=== PATIENT | female | born 1980 | race African-American/Black ===

== ENCOUNTER 2016-10-28 10:40 | Emergency (ER) | payer MEDICARE, OTHER ==
[~2016-10-28] VITALS: Ht 167.6 cm; Wt 99.8 kg
[2016-10-28 12:05] VITALS: BP 239/114
--- NOTE | 2016-10-28 13:10 | PHYS DOC ---
Past Medical History Past Medical History: Diabetes-Type I, Hypertension, Renal Failure Past Surgical History: Additional Past Surgical Histo: PERITONEAL SURGERY Alcohol Use: None Drug Use: None Adult General Chief Complaint Chief Complaint: OTHER COMPLAINTS HPI HPI 36-year-old female who undergoes peritoneal dialysis was sent here by a local dialysis clinic for blood draw. The patient denies any symptoms she denies shortness of breath nausea vomiting fevers or chills. Onset today. Location generalized. Duration intermittent. No alleviating factors present. ROS is negative for chest pain shortness of breath nausea vomiting fevers chills. All other review of systems is negative unless otherwise noted in history of present illness. ED course: 36-year-old female presenting to the emergency department today desiring a blood draw. Triage vital signs afebrile with significant hypertension at 240 Nearly over 115. The remainder the vital signs were unremarkable. The patient was well-appearing nontoxic and not in any distress when I examined her. I explained to her that when evaluated in the emergency department we performed our lab here to ensure she does not have an emergent medical condition. I offered to forward a copy of those labs to her cabana attendant. It is my concern that her potassium could be abnormal which I would want to have tested. The patient was upset and only desired for the blood to be drawn and taken with her to clinic. I explained to her my concerns. The patient then eloped without discharge instructions. She demonstrated medical decision making capacity at that time and understood the risks. Patient did not have any evidence of end organ damage. Review of Systems Review of Systems SEE ABOVE. Allergies Allergies Allergies Coded Allergies Type Severity Reaction Last Updated Verified No Known Drug Allergies 10/28/16 No Physical Exam Physical Exam SEE ABOVE Constitutional: Well developed, well nourished, no acute distress, non-toxic appearance. [] HENT: Normocephalic, atraumatic, bilateral external ears normal, oropharynx moist, no oral exudates, nose normal. [] Eyes: PERRLA, EOMI, conjunctiva normal, no discharge. Neck: Normal range of motion, no tenderness, supple, no stridor. [] Cardiovascular:Heart rate regular rhythm, no murmur [] Lungs & Thorax: Bilateral breath sounds clear to auscultation Abdomen: Bowel sounds normal, soft, no tenderness, no masses, no pulsatile masses. [] Skin: Warm, dry, no erythema, no rash. [] Back: No tenderness, no CVA tenderness. [] Extremities: No tenderness, no cyanosis, no clubbing, ROM intact, no edema. Neurologic: Alert and oriented X 3, normal motor function, normal sensory function, no focal deficits noted. [] Psychologic: Affect normal, judgement normal, mood normal. [] Current Patient Data Vital Signs Vital Signs Date Time Temp Pulse Resp B/P (MAP) Pulse Ox O2 Delivery O2 Flow Rate FiO2 10/28/16 12:05 97.7 69 18 99 Room Air 97.7 EKG EKG [] Radiology/Procedures Radiology/Procedures [] Course & Med Decision Making Course & Med Decision Making Pertinent Labs and Imaging studies reviewed. (See chart for details) [] Dragon Disclaimer Dragon Disclaimer This electronic medical record was generated, in whole or in part, using a voice recognition dictation system. Departure Departure Impression: Primary Impression: Hypertension Disposition: HOME, SELF-CARE (ELOPED) Condition: STABLE Referrals: NON,STAFF (PCP) BRIGHT OLSEN MD Oct 28, 2016 13:10
== END 2016-10-28 13:23 | disposition home or self-care (01) ==
LOC: ER 10:40
DX: I12.9 Hypertensive chronic kidney disease with stage 1 through stage 4 chronic kidney disease, or unspecified chronic kidney disease (principal); N18.9 Chronic kidney disease, unspecified; E10.22 Type 1 diabetes mellitus with diabetic chronic kidney disease; Z99.2 Dependence on renal dialysis
CPT/HCPCS: 99281

== ENCOUNTER 2017-05-26 15:47 | Emergency (ER) | payer MEDICARE | END 2017-05-26 19:41 | disposition home or self-care (01) | LOC: ER 15:47 | DX: M25.552 Pain in left hip (principal); I12.9 Hypertensive chronic kidney disease with stage 1 through stage 4 chronic kidney disease, or unspecified chronic kidney disease; E10.22 Type 1 diabetes mellitus with diabetic chronic kidney disease; N18.9 Chronic kidney disease, unspecified | CPT/HCPCS: 73502; 99284 ==

== ENCOUNTER 2018-07-19 15:39 | Inpatient (IN) | payer MEDICARE ==
[~2018-07-19] VITALS: Ht 162.6 cm; Wt 103.0 kg
[~2018-07-19 15:39] MED LIST: IBUP-1060 PO; PRED50TA PO
[2018-07-19] MEDS ORDERED: ONDANSETRON PF 4 MG/2 ML VIAL. IV ONE (16:00)
[2018-07-19] MEDS ORDERED: IV NORMAL SALINE 1000ML BAG 1,000 ML IV ONE (16:15)
[2018-07-19] MEDS ORDERED: fentaNYL PF VIAL 100 MCG/2 ML VIAL IV ONE (16:15)
[2018-07-19 16:29] LABS: BASO # 0.1 x10^3/uL (0.0-0.2); BASO % 1 % (0-3); EOS # 0.1 x10^3/uL (0.0-0.7); EOS % 1 % (0-3); HEMATOCRIT 39.1 % (36.0-47.0); HEMOGLOBIN 12.1 g/dL (12.0-15.5); LYMPH # 3.5 x10^3/uL (1.0-4.8); LYMPH % 38 % (24-48); MEAN CORPUSCULAR HEMOGLOBIN 26 pg (25-35); MEAN CORPUSCULAR HGB CONC 31 g/dL (31-37); MEAN CORPUSCULAR VOLUME 85 fL (79-100); MONO # 0.8 x10^3/uL (0.0-1.1); MONO % 9 % (0-9); NEUT # 4.8 x10^3uL (1.8-7.7); NEUT % 52 % (31-73); PLATELET COUNT 277 x10^3/uL (140-400); RED BLOOD COUNT 4.63 x10^6/uL (3.50-5.40); RED CELL DISTRIBUTION WIDTH 19.8 % (11.5-14.5); WHITE BLOOD COUNT 9.2 x10^3/uL (4.0-11.0)
[2018-07-19 16:32] LABS: CALCIUM 9.3 mg/dL (8.5-10.1); CREATININE 9.3 mg/dL (0.6-1.0); GFR 5.8; POTASSIUM 3.7 mmol/L (3.5-5.1)
--- NOTE | 2018-07-19 16:34 | PHYS DOC ---
Past Medical History Past Medical History: Diabetes-Type I, Hypertension, Renal Failure Past Surgical History: Additional Past Surgical Histo: PERITONEAL SURGERY Alcohol Use: None Drug Use: None Adult General Chief Complaint Chief Complaint: CHEST PAIN HPI HPI 37 year old female presents to ER via POV for complaints of mid chest pain which radiates into her right arm and upper abdominal pain. Patient reports she had eaten lunch at [employer] around 3:15 and following the meal she had onset of symptoms. Patient on arrival has complaints of nausea and during initial exam with this patient had active vomiting. She does still have her gallbladder. Patient denies any recent flulike illness. She reports she was having no symptoms prior to lunch. Review of Systems Review of Systems Constitutional: Denies fever or chills [] Eyes: Denies change in visual acuity, redness, or eye pain [] HENT: Denies nasal congestion or sore throat [] Respiratory: Denies cough or shortness of breath [] Cardiovascular: Reports mid to rt side CP GI: Denies bloody stools or diarrhea. Reports rt upper abd pain with N/V : Denies dysuria or hematuria [] Musculoskeletal: Denies back/neck pain. Reports rt upper arm pain Integument: Denies rash or skin lesions [] Neurologic: Denies headache, focal weakness or sensory changes [] Endocrine: Denies polyuria or polydipsia [] All other systems were reviewed and found to be within normal limits, except as documented in this note. Current Medications Current Medications Current Medications Medications (Trade) Dose Ordered Sig/Anh Start Time Stop Time Status Last Admin Dose Admin Fentanyl Citrate (Fentanyl 2ml Vial) 25 mcg 1X ONCE 07/19/18 16:15 07/19/18 16:16 DC 07/19/18 16:20 25 MCG Ondansetron HCl (Zofran) 4 mg 1X ONCE 07/19/18 16:00 07/19/18 16:02 DC 07/19/18 16:05 4 MG Sodium Chloride 1,000 ml @ 1,000 mls/hr 1X ONCE 07/19/18 16:15 07/19/18 17:14 DC 07/19/18 16:15 1,000 MLS/HR Allergies Allergies Allergies Coded Allergies Type Severity Reaction Last Updated Verified No Known Drug Allergies 07/19/18 No Physical Exam Physical Exam Constitutional: Well developed, well nourished, mild distress on initial exam, non-toxic appearance. [] HENT: Normocephalic, atraumatic, oropharynx moist, no oral exudates, nose normal. [] Eyes: Pupils equal, conjunctiva normal, no discharge. [] Neck: Normal range of motion, no tenderness, supple, no stridor. [] Cardiovascular: Heart rate regular rhythm, no murmur [] Lungs & Thorax: Bilateral breath sounds clear to auscultation. Resp. equal/ nonlabored Abdomen: Bowel sounds normal, soft- no distention/rigidity. Tender on palp. RUQ , no masses, no pulsatile masses. [] Skin: Warm, dry, no erythema, no rash. [] Back: No tenderness, no CVA tenderness. [] Extremities: No tenderness, no cyanosis, no clubbing, ROM intact, no edema. [] Neurologic: Alert and oriented X 3, normal motor function, normal sensory function, no focal deficits noted. [] Psychologic: Affect normal, judgement normal, mood normal. [] Current Patient Data Vital Signs Vital Signs Date Time Temp Pulse Resp B/P (MAP) Pulse Ox O2 Delivery O2 Flow Rate FiO2 07/19/18 17:34 81 16 206/91 (129) 07/19/18 15:40 97.6 98 Room Air 97.6 Lab Values Laboratory Tests Test 07/19/18 15:55 White Blood Count 9.2 x10^3/uL (4.0-11.0) Red Blood Count 4.63 x10^6/uL (3.50-5.40) Hemoglobin 12.1 g/dL (12.0-15.5) Hematocrit 39.1 % (36.0-47.0) Mean Corpuscular Volume 85 fL (79-100) Mean Corpuscular Hemoglobin 26 pg (25-35) Mean Corpuscular Hemoglobin Concent 31 g/dL (31-37) Red Cell Distribution Width 19.8 % (11.5-14.5) H Platelet Count 277 x10^3/uL (140-400) Neutrophils (%) (Auto) 52 % (31-73) Lymphocytes (%) (Auto) 38 % (24-48) Monocytes (%) (Auto) 9 % (0-9) Eosinophils (%) (Auto) 1 % (0-3) Basophils (%) (Auto) 1 % (0-3) Neutrophils # (Auto) 4.8 x10^3uL (1.8-7.7) Lymphocytes # (Auto) 3.5 x10^3/uL (1.0-4.8) Monocytes # (Auto) 0.8 x10^3/uL (0.0-1.1) Eosinophils # (Auto) 0.1 x10^3/uL (0.0-0.7) Basophils # (Auto) 0.1 x10^3/uL (0.0-0.2) Sodium Level 137 mmol/L (136-145) Potassium Level 3.7 mmol/L (3.5-5.1) Chloride Level 96 mmol/L (98-107) L Carbon Dioxide Level 25 mmol/L (21-32) Anion Gap 16 (6-14) H Blood Urea Nitrogen 49 mg/dL (7-20) H Creatinine 9.3 mg/dL (0.6-1.0) H Estimated GFR (Cockcroft-Gault) 5.8 BUN/Creatinine Ratio 5 (6-20) L Glucose Level 332 mg/dL (70-99) H Calcium Level 9.3 mg/dL (8.5-10.1) Total Bilirubin 0.4 mg/dL (0.2-1.0) Aspartate Amino Transferase (AST) 17 U/L (15-37) Alanine Aminotransferase (ALT) 14 U/L (14-59) Alkaline Phosphatase 58 U/L (46-116) Troponin I Quantitative < 0.017 ng/mL (0.000-0.055) Total Protein 8.5 g/dL (6.4-8.2) H Albumin 3.6 g/dL (3.4-5.0) Albumin/Globulin Ratio 0.7 (1.0-1.7) L Lipase 167 U/L (73-393) Laboratory Tests 07/19/18 15:55 Laboratory Tests 07/19/18 15:55 EKG EKG EKG obtained 07/19/18 at 1547 Interpreted by ER physician Sinus rhythm Ltward axis Rate 88 No STEMI Radiology/Procedures Radiology/Procedures PROCEDURE: CHEST AP ONLY EXAM: CHEST 1 VIEW. HISTORY: Chest pain. COMPARISON: 06/02/2008. FINDINGS: A frontal view of the chest is obtained. There are no confluent infiltrates. There is no pneumothorax or pleural effusion. The heart is mildly enlarged given this projection. IMPRESSION: 1. Mild cardiomegaly. Electronically signed by: Karson Torres MD (07/19/2018 4:44 PM) [id number] DICTATED and SIGNED BY: STEFAN TORRES MD DATE: 07/19/18 1644 PROCEDURE: ABDOMEN LTD EXAM: RIGHT UPPER QUADRANT ULTRASOUND. HISTORY: Right upper quadrant pain. COMPARISON: None. FINDINGS: Sonographic evaluation of the right upper quadrant was performed. The liver appears normal in parenchymal echotexture. There are no focal lesions. The gallbladder is unremarkable without evidence of stones, wall thickening or pericholecystic fluid. There is no sonographic Bartlett sign. The common duct measures 5 mm. The visualized portions of the head of the pancreas reveal no abnormality. The right kidney measures 8.7 cm. Cortical thickness is preserved. Cortical echogenicity is mildly increased. There is no hydronephrosis. The visualized portions of the abdominal aorta and inferior vena cava are grossly patent and normal in caliber. IMPRESSION: 1. No cause for pain is identified. 2. Increased right renal cortical echogenicity is consistent with intrinsic renal disease. Electronically signed by: Karson Torres MD (07/19/2018 5:21 PM) [facility] [id number] DICTATED and SIGNED BY: STEFAN TORRES MD DATE: 07/19/18 1721 Course & Med Decision Making Course & Med Decision Making Pertinent Labs and Imaging studies reviewed. (See chart for details) 1735: Patient was evaluated in the ER for complaints of sudden onset of right- sided chest pain which radiated into her right arm. On exam patient also had right upper abdominal tenderness on palpation. Patient had EKG and labs obtained with no acute ST elevation or STEMI and initial troponin was <0.017; chest x-ray showed mild organomegaly otherwise no acute findings. Ultrasound gallbladder was obtained with no acute findings noted. Patient reports her symptoms had improved as she had active vomiting during initial exam. Following dose of Zofran patient reported her nausea had subsided. Patient reported her parents both had cardiac history with her father having an ME in his 50s. With patient's onset of chest pain happening just prior to arrival to ER discussed admission to complete serial cardiac enzymes-patient is agreeable with plan. Will admit to hospitalist services for further care and monitoring. Will give patient 324 mg of aspirin. Patient's BP at time of admission discussion was 203/ 82 with heart rate 95 respirations 18 and room air saturation at 98%. Will provide patient with dose of Clonidine 0.1mg PO. Pt does have history of hypertension and has not taken her prescribed medications today. 1750: Spoke with Dr. Galvez, hospitalist and discussed pt's case and admit plan to complete serial cardiac enzymes. She reports her dialysis schedule is Saturday however this week her schedule was changed and she had dialysis yesterday instead of today. HEART score is 2 however with pt having HTN/DM and family hx of CAD with both mother and father- admitted to further r/o ACS as her sxs started just prior to arrival to ER. Dragon Disclaimer Dragon Disclaimer This electronic medical record was generated, in whole or in part, using a voice recognition dictation system. Departure Departure Impression: Primary Impression: Chest pain Additional Impression: Shortness of breath Disposition: ADMITTED INPATIENT Admitting Physician: Gus Jim Condition: STABLE Referrals: UNKNOWN PCP NAME (PCP) Problem Qualifiers MONICA ROSENBAUM APRN Jul 19, 2018 16:34
[2018-07-19 16:38] LABS: ALBUMIN 3.6 g/dL (3.4-5.0); ALBUMIN/GLOBULIN RATIO 0.7 (1.0-1.7); TOTAL BILIRUBIN 0.4 mg/dL (0.2-1.0); TOTAL PROTEIN 8.5 g/dL (6.4-8.2)
--- NOTE | 2018-07-19 16:47 | RAD ---
EXAM: CHEST 1 VIEW. HISTORY: Chest pain. COMPARISON: 06/02/2008. FINDINGS: A frontal view of the chest is obtained. There are no confluent infiltrates. There is no pneumothorax or pleural effusion. The heart is mildly enlarged given this projection. IMPRESSION: 1. Mild cardiomegaly. Electronically signed by: Karson Torres MD (07/19/2018 4:44 PM) [facility]
--- NOTE | 2018-07-19 17:24 | RAD ---
EXAM: RIGHT UPPER QUADRANT ULTRASOUND. HISTORY: Right upper quadrant pain. COMPARISON: None. FINDINGS: Sonographic evaluation of the right upper quadrant was performed. The liver appears normal in parenchymal echotexture. There are no focal lesions. The gallbladder is unremarkable without evidence of stones, wall thickening or pericholecystic fluid. There is no sonographic Bartlett sign. The common duct measures 5 mm. The visualized portions of the head of the pancreas reveal no abnormality. The right kidney measures 8.7 cm. Cortical thickness is preserved. Cortical echogenicity is mildly increased. There is no hydronephrosis. The visualized portions of the abdominal aorta and inferior vena cava are grossly patent and normal in caliber. IMPRESSION: 1. No cause for pain is identified. 2. Increased right renal cortical echogenicity is consistent with intrinsic renal disease. Electronically signed by: Karson Torres MD (07/19/2018 5:21 PM) [facility]
[2018-07-19] MEDS ORDERED: cloNIDine HCL 0.1 MG TABLET PO ONE (17:45)
[2018-07-19] MEDS ORDERED: ASPIRIN CHEWABLE 81 MG TABLET. PO ONE (17:45)
[2018-07-19] MEDS ORDERED: AMLO10TA8 PO (18:29)
[2018-07-19] MEDS ORDERED: CITA10TA8 PO (18:34)
[2018-07-19] MEDS ORDERED: CARV12.5 PO (18:34)
[2018-07-19 18:36] VITALS: BP 204/92
[2018-07-19] MEDS: hydrALAZINE 20 MG/ML VIAL. IVP PRN (18:59)
[2018-07-19 19:00] VITALS: BP 160/79
[2018-07-19] MEDS ORDERED: LOPERAMIDE 2 MG CAPSULE PO PRN (20:00)
[2018-07-19] MEDS ORDERED: CITALOPRAM 10 MG TABLET. PO SCH (21:00)
[2018-07-19] MEDS ORDERED: DEXTROSE 50% 25 GM / 50ML DISP.SYRIN. IV PRN (21:00)
--- NOTE | 2018-07-19 21:01 | PDOC1 ---
History and Physical Date of Admission Date of Admission DATE: 07/19/18 TIME: 21:00 Identification/Chief Complaint Chief Complaint seen in er with complaints of mid chest pain which radiates into her right arm and upper abdominal pain. reports she had eaten lunch at [employer] around 3:15 and following the meal she had onset of symptoms, on arrival has complaints of nausea and during initial exam with this patient had active vomiting. sono neg for gallstones Past Medical History Past Medical History Past Medical History Past Medical History Past Medical History: Diabetes-Type I, Hypertension, Renal Failure Past Surgical History: Additional Past Surgical Histo: PERITONEAL SURGERY Alcohol Use: None Drug Use: None FAMILY HX OBESITY, DIABETES Endocrine: Diabetes Family History Family History: High Cholestrol Social History Smoke: No ALCOHOL: none Drugs: None Current Problem List Problem List Problems Medical Problems: (1) Chest pain Status: Acute (2) Shortness of breath Status: Acute Current Medications Current Medications Current Medications Ondansetron HCl (Zofran) 4 mg 1X ONCE IV Last administered on 07/19/18at 16:05 ; Start 07/19/18 at 16:00; Stop 07/19/18 at 16:02; Status DC Sodium Chloride 1,000 ml @ 1,000 mls/hr 1X ONCE IV Last administered on at 16:15; Start 07/19/18 at 16:15; Stop 07/19/18 at 17:14; Status DC Fentanyl Citrate (Fentanyl 2ml Vial) 25 mcg 1X ONCE IV Last administered on at 16:20; Start 07/19/18 at 16:15; Stop 07/19/18 at 16:16; Status DC Clonidine HCl (Catapres) 0.1 mg 1X ONCE PO Last administered on 07/19/18at 17: 45; Start 07/19/18 at 17:45; Stop 07/19/18 at 17:50; Status DC Aspirin (Children'S Aspirin) 324 mg 1X ONCE PO Last administered on 07/19/18at 17:45; Start 07/19/18 at 17:45; Stop 07/19/18 at 17:50; Status DC Hydralazine HCl (Apresoline Inj) 10 mg PRN Q4HRS PRN IVP ELEVATED BP, SEE COMMENTS Last administered on 07/19/18at 18:59; Start 07/19/18 at 18:45 Amlodipine Besylate (Norvasc) 10 mg DAILY PO ; Start 07/20/18 at 09:00 Carvedilol (Coreg) 12.5 mg BIDWMEALS PO ; Start 07/20/18 at 08:00 Citalopram Hydrobromide (CeleXA) 10 mg DAILY PO ; Start 07/20/18 at 09:00; Stop 07/20/18 at 09:00; Status DC Citalopram Hydrobromide (CeleXA) 10 mg HS PO ; Start 07/19/18 at 21:00 Loperamide HCl (Imodium) 2 mg PRN Q8HRS PRN PO DIARRHEA Last administered on at 20:10; Start 07/19/18 at 20:00 Active Scripts Active Reported Celexa (Citalopram Hydrobromide) 10 Mg Tablet 1 Tab PO DAILY Coreg (Carvedilol) 12.5 Mg Tablet 12.5 Mg PO BIDWMEALS Amlodipine Besylate 10 Mg Tablet 10 Mg PO DAILY Allergies Allergies: Coded Allergies: No Known Drug Allergies (Unverified , 07/19/18) ROS Review of System Review of Systems Review of Systems Constitutional: Denies fever or chills [] Eyes: Denies change in visual acuity, redness, or eye pain [] HENT: Denies nasal congestion or sore throat [] Respiratory: Denies cough or shortness of breath [] Cardiovascular: Reports mid to rt side CP GI: Denies bloody stools or diarrhea. Reports rt upper abd pain with N/V : Denies dysuria or hematuria [] Musculoskeletal: Denies back/neck pain. Reports rt upper arm pain Integument: Denies rash or skin lesions [] Neurologic: Denies headache, focal weakness or sensory changes [] Endocrine: Denies polyuria or polydipsia [] 14 pt systems were reviewed and found to be within normal limits, except as documented Gastrointestinal: Yes Vomiting Physical Exam Physical Exam Physical Exam Physical Exam Constitutional: Well developed, well nourished, mild distress on initial exam, non-toxic appearance. [] HENT: Normocephalic, atraumatic, oropharynx moist, no oral exudates, nose normal. [] Eyes: Pupils equal, conjunctiva normal, no discharge. [] Neck: Normal range of motion, no tenderness, supple, no stridor. [] Cardiovascular: Heart rate regular rhythm, no murmur [] Lungs & Thorax: Bilateral breath sounds clear to auscultation. Resp. equal/ nonlabored Abdomen: Bowel sounds normal, soft- no distention/rigidity. Tender on palp. RUQ , no masses, no pulsatile masses. [] Skin: Warm, dry, no erythema, no rash. [] Back: No tenderness, no CVA tenderness. [] Extremities: No tenderness, no cyanosis, no clubbing, ROM intact, no edema. [] Neurologic: Alert and oriented X 3, normal motor function, normal sensory function, no focal deficits noted. [] Psychologic: Affect normal, judgement normal, mood normal. [] General: Alert, Oriented X3, Cooperative, mild distress HEENT: Atraumatic Lungs: Clear to auscultation Breasts: Not examined Abdomen: Normal bowel sounds, Soft Rectal Exam: not examined Neuro: Normal speech, Cranial nerves 3-12 NL Psych/Mental Status: Mental status NL, Mood NL Vitals Vitals Vital Signs Date Time Temp Pulse Resp B/P (MAP) Pulse Ox O2 Delivery O2 Flow Rate FiO2 07/19/18 19:39 Room Air 07/19/18 19:00 97.0 74 18 160/79 (106) 99 97.0 Labs Labs Laboratory Tests Test 07/19/18 15:55 07/19/18 20:54 White Blood Count 9.2 x10^3/uL (4.0-11.0) Red Blood Count 4.63 x10^6/uL (3.50-5.40) Hemoglobin 12.1 g/dL (12.0-15.5) Hematocrit 39.1 % (36.0-47.0) Mean Corpuscular Volume 85 fL (79-100) Mean Corpuscular Hemoglobin 26 pg (25-35) Mean Corpuscular Hemoglobin Concent 31 g/dL (31-37) Red Cell Distribution Width 19.8 % (11.5-14.5) Platelet Count 277 x10^3/uL (140-400) Neutrophils (%) (Auto) 52 % (31-73) Lymphocytes (%) (Auto) 38 % (24-48) Monocytes (%) (Auto) 9 % (0-9) Eosinophils (%) (Auto) 1 % (0-3) Basophils (%) (Auto) 1 % (0-3) Neutrophils # (Auto) 4.8 x10^3uL (1.8-7.7) Lymphocytes # (Auto) 3.5 x10^3/uL (1.0-4.8) Monocytes # (Auto) 0.8 x10^3/uL (0.0-1.1) Eosinophils # (Auto) 0.1 x10^3/uL (0.0-0.7) Basophils # (Auto) 0.1 x10^3/uL (0.0-0.2) Sodium Level 137 mmol/L (136-145) Potassium Level 3.7 mmol/L (3.5-5.1) Chloride Level 96 mmol/L (98-107) Carbon Dioxide Level 25 mmol/L (21-32) Anion Gap 16 (6-14) Blood Urea Nitrogen 49 mg/dL (7-20) Creatinine 9.3 mg/dL (0.6-1.0) Estimated GFR (Cockcroft-Gault) 5.8 BUN/Creatinine Ratio 5 (6-20) Glucose Level 332 mg/dL (70-99) Calcium Level 9.3 mg/dL (8.5-10.1) Total Bilirubin 0.4 mg/dL (0.2-1.0) Aspartate Amino Transf (AST/SGOT) 17 U/L (15-37) Alanine Aminotransferase (ALT/SGPT) 14 U/L (14-59) Alkaline Phosphatase 58 U/L (46-116) Troponin I Quantitative < 0.017 ng/mL (0.000-0.055) Total Protein 8.5 g/dL (6.4-8.2) Albumin 3.6 g/dL (3.4-5.0) Albumin/Globulin Ratio 0.7 (1.0-1.7) Lipase 167 U/L (73-393) Glucose (Fingerstick) 295 mg/dL (70-99) Laboratory Tests Test 07/19/18 15:55 07/19/18 20:54 White Blood Count 9.2 x10^3/uL (4.0-11.0) Red Blood Count 4.63 x10^6/uL (3.50-5.40) Hemoglobin 12.1 g/dL (12.0-15.5) Hematocrit 39.1 % (36.0-47.0) Mean Corpuscular Volume 85 fL (79-100) Mean Corpuscular Hemoglobin 26 pg (25-35) Mean Corpuscular Hemoglobin Concent 31 g/dL (31-37) Red Cell Distribution Width 19.8 % (11.5-14.5) Platelet Count 277 x10^3/uL (140-400) Neutrophils (%) (Auto) 52 % (31-73) Lymphocytes (%) (Auto) 38 % (24-48) Monocytes (%) (Auto) 9 % (0-9) Eosinophils (%) (Auto) 1 % (0-3) Basophils (%) (Auto) 1 % (0-3) Neutrophils # (Auto) 4.8 x10^3uL (1.8-7.7) Lymphocytes # (Auto) 3.5 x10^3/uL (1.0-4.8) Monocytes # (Auto) 0.8 x10^3/uL (0.0-1.1) Eosinophils # (Auto) 0.1 x10^3/uL (0.0-0.7) Basophils # (Auto) 0.1 x10^3/uL (0.0-0.2) Sodium Level 137 mmol/L (136-145) Potassium Level 3.7 mmol/L (3.5-5.1) Chloride Level 96 mmol/L (98-107) Carbon Dioxide Level 25 mmol/L (21-32) Anion Gap 16 (6-14) Blood Urea Nitrogen 49 mg/dL (7-20) Creatinine 9.3 mg/dL (0.6-1.0) Estimated GFR (Cockcroft-Gault) 5.8 BUN/Creatinine Ratio 5 (6-20) Glucose Level 332 mg/dL (70-99) Calcium Level 9.3 mg/dL (8.5-10.1) Total Bilirubin 0.4 mg/dL (0.2-1.0) Aspartate Amino Transf (AST/SGOT) 17 U/L (15-37) Alanine Aminotransferase (ALT/SGPT) 14 U/L (14-59) Alkaline Phosphatase 58 U/L (46-116) Troponin I Quantitative < 0.017 ng/mL (0.000-0.055) Total Protein 8.5 g/dL (6.4-8.2) Albumin 3.6 g/dL (3.4-5.0) Albumin/Globulin Ratio 0.7 (1.0-1.7) Lipase 167 U/L (73-393) Glucose (Fingerstick) 295 mg/dL (70-99) Images Images EXAM: RIGHT UPPER QUADRANT ULTRASOUND. HISTORY: Right upper quadrant pain. COMPARISON: None. FINDINGS: Sonographic evaluation of the right upper quadrant was performed. The liver appears normal in parenchymal echotexture. There are no focal lesions. The gallbladder is unremarkable without evidence of stones, wall thickening or pericholecystic fluid. There is no sonographic Bartlett sign. The common duct measures 5 mm. The visualized portions of the head of the pancreas reveal no abnormality. The right kidney measures 8.7 cm. Cortical thickness is preserved. Cortical echogenicity is mildly increased. There is no hydronephrosis. The visualized portions of the abdominal aorta and inferior vena cava are grossly patent and normal in caliber. IMPRESSION: 1. No cause for pain is identified. 2. Increased right renal cortical echogenicity is consistent with intrinsic renal disease. Electronically signed by: Karson Torres MD (07/19/2018 5:21 PM) [email or web address] EXAM: CHEST 1 VIEW. HISTORY: Chest pain. COMPARISON: 06/02/2008. FINDINGS: A frontal view of the chest is obtained. There are no confluent infiltrates. There is no pneumothorax or pleural effusion. The heart is mildly enlarged given this projection. IMPRESSION: 1. Mild cardiomegaly. Electronically signed by: Karson Torres MD (07/19/2018 4:44 PM) [email or web address] DICTATED and SIGNED BY: STEFAN TORRES MD VTE Prophylaxis Ordered VTE Prophylaxis Devices: Yes VTE Pharmacological Prophylaxi: Yes Assessment/Plan Assessment/Plan impression 1. chest pain The gallbladder is unremarkable without evidence of stones, wall thickening or pericholecystic fluid. There is no sonographic Bartlett sign. on sono 2. ESRD on dialysis 4. diabetes suboptimal control 5. morbid obesity 6. HYPERTENSION 7. GERD plan cvc admit serial troponin i echo consult cardiology consult nephrology dvt prophylaxis BP CONTROL PROTONIX 40MG PO DAILY ss insulin KATHY VAZQUEZ MD Jul 19, 2018 21:01
[2018-07-19 23:00] VITALS: BP 188/78
[2018-07-20 03:45] VITALS: BP 196/94
[2018-07-20 03:47] LABS: BASO % 0 % (0-3); EOS # 0.1 x10^3/uL (0.0-0.7); EOS % 2 % (0-3); HEMATOCRIT 37.9 % (36.0-47.0); HEMOGLOBIN 11.7 g/dL (12.0-15.5); LYMPH # 2.4 x10^3/uL (1.0-4.8); LYMPH % 32 % (24-48); MEAN CORPUSCULAR HEMOGLOBIN 26 pg (25-35); MEAN CORPUSCULAR HGB CONC 31 g/dL (31-37); MEAN CORPUSCULAR VOLUME 83 fL (79-100); MONO # 0.8 x10^3/uL (0.0-1.1); MONO % 11 % (0-9); NEUT % 55 % (31-73); PLATELET COUNT 243 x10^3/uL (140-400); RED BLOOD COUNT 4.54 x10^6/uL (3.50-5.40); RED CELL DISTRIBUTION WIDTH 20.4 % (11.5-14.5); WHITE BLOOD COUNT 7.3 x10^3/uL (4.0-11.0)
[2018-07-20] MEDS: hydrALAZINE 20 MG/ML VIAL. IVP PRN (03:47)
[2018-07-20 04:05] LABS: ALBUMIN 3.2 g/dL (3.4-5.0); CALCIUM 8.8 mg/dL (8.5-10.1); CREATININE 9.8 mg/dL (0.6-1.0); GFR 5.5; POTASSIUM 4.2 mmol/L (3.5-5.1)
[2018-07-20 04:38] VITALS: BP 130/49
[2018-07-20] MEDS ORDERED: PANTOPRAZOLE 40 MG TABLET.DR. PO SCH (07:30)
[2018-07-20 07:58] VITALS: BP 138/59
[2018-07-20] MEDS: INSULIN LISPRO 300 UNITS/3 ML INSULN.PEN. SQ SCH ×2 (08:00→12:00)
[2018-07-20] MEDS ORDERED: CARVEDILOL 12.5 MG TABLET. PO SCH (08:00)
[2018-07-20] MEDS ORDERED: CITALOPRAM 10 MG TABLET. PO SCH (09:00)
[2018-07-20] MEDS ORDERED: amLODIPine BESYLATE 10 MG TABLET PO SCH (09:00)
[2018-07-20 10:52] VITALS: BP 163/80
--- NOTE | 2018-07-20 11:58 | PDOC2 ---
CONSULT Date of Consult Date of Consult DATE: 07/20/18 TIME: 11:52 Reason for Consult Reason for Consult: ESRD Referring Physician Referring Physician: GEORGE Identification/Chief Complaint Chief Complaint CHEST PAIN Source Source: Chart review, Patient History of Present Illness Reason for Visit: THIS IS A 37 YR OLD PT WITH ESRD AND HAS BEEN ON HD SINCE 2016. ESRD DUE TO DM I AND HTN HX. HAS AN AV ACCESS IN HER THIGH FOR DIALYSIS. ADMITTED WITH CHEST PAIN AND IS NOW UNDERGOING CARDIOLOGY EVALUATION. SHE USUALLY SEES [facility] FOR HER RENAL CARE. LABS ARE C/W ESRD. ALSO HAD SOME RUQ PAIN WHICH HAS RESOLVED SINCE ADMIT, IMAGING WAS UNREMARKABLE. USUALLY HAS OP HD ON TTS. THIS PAST WEEK SHE WAS UNABLE TO KEEP HER THUR APPT DUE TO A CONFLICT AND SO DID OP HD ON SATURDAY Past Medical History Cardiovascular: HTN Psych: Depression Renal/: Chronic renal failure Endocrine: Diabetes, Hyperparathyroidism Past Surgical History Past Surgical History THIGH AV ACCESS FOR HD Family History Family History: High Cholestrol, Hypertension Social History No ALCOHOL: none Drugs: None Lives: with Family Current Problem List Problem List Problems Medical Problems: (1) Chest pain Status: Acute (2) Shortness of breath Status: Acute Current Medications Current Medications Current Medications Ondansetron HCl (Zofran) 4 mg 1X ONCE IV Last administered on 07/19/18at 16:05 ; Start 07/19/18 at 16:00; Stop 07/19/18 at 16:02; Status DC Sodium Chloride 1,000 ml @ 1,000 mls/hr 1X ONCE IV Last administered on at 16:15; Start 07/19/18 at 16:15; Stop 07/19/18 at 17:14; Status DC Fentanyl Citrate (Fentanyl 2ml Vial) 25 mcg 1X ONCE IV Last administered on at 16:20; Start 07/19/18 at 16:15; Stop 07/19/18 at 16:16; Status DC Clonidine HCl (Catapres) 0.1 mg 1X ONCE PO Last administered on 07/19/18at 17: 45; Start 07/19/18 at 17:45; Stop 07/19/18 at 17:50; Status DC Aspirin (Children'S Aspirin) 324 mg 1X ONCE PO Last administered on 07/19/18at 17:45; Start 07/19/18 at 17:45; Stop 07/19/18 at 17:50; Status DC Hydralazine HCl (Apresoline Inj) 10 mg PRN Q4HRS PRN IVP ELEVATED BP, SEE COMMENTS Last administered on 07/20/18at 03:47; Start 07/19/18 at 18:45 Amlodipine Besylate (Norvasc) 10 mg DAILY PO ; Start 07/20/18 at 09:00 Carvedilol (Coreg) 12.5 mg BIDWMEALS PO ; Start 07/20/18 at 08:00 Citalopram Hydrobromide (CeleXA) 10 mg DAILY PO ; Start 07/20/18 at 09:00; Stop 07/20/18 at 09:00; Status DC Citalopram Hydrobromide (CeleXA) 10 mg HS PO Last administered on 07/19/18at 21: 00; Start 07/19/18 at 21:00 Loperamide HCl (Imodium) 2 mg PRN Q8HRS PRN PO DIARRHEA Last administered on at 20:10; Start 07/19/18 at 20:00 Insulin Human Lispro (HumaLOG) 0-5 UNITS TIDWMEALS SQ ; Start 07/20/18 at 08:00 Dextrose (Dextrose 50%-Water Syringe) 12.5 gm PRN Q15MIN PRN IV SEE COMMENTS; Start 07/19/18 at 21:00 Pantoprazole Sodium (Protonix) 40 mg DAILYAC PO ; Start 07/20/18 at 07:30 Heparin Sodium (Porcine) (Heparin Sodium) 5,000 unit Q8HRS SQ ; Start 07/20/18 at 14:00 Active Scripts Active Reported Celexa (Citalopram Hydrobromide) 10 Mg Tablet 1 Tab PO DAILY Coreg (Carvedilol) 12.5 Mg Tablet 12.5 Mg PO BIDWMEALS Amlodipine Besylate 10 Mg Tablet 10 Mg PO DAILY Allergies Allergies: Coded Allergies: No Known Drug Allergies (Unverified , 07/19/18) ROS General: YES: Fatigue, Appetite PSYCHOLOGICAL ROS: YES: Anxiety, Depression Eyes: Yes Decreased vision ALLERGY AND IMMUNOLOGY: YES: Seasonal Allergies Respiratory: YES: Cough, Shortness of breath Cardiovascular: yes Chest Pain Gastrointestinal: Yes Constipation Genitourinary: YES Other (ANURIA) Musculoskeletal: Yes Muscular Weakness Neurological: Yes Weakness Skin: Yes Dry Skin Physical Exam General: Alert, Oriented X3, Cooperative, No acute distress HEENT: Atraumatic, PERRLA, EOMI, Mucous membr. moist/pink Lungs: Clear to auscultation, Normal air movement Heart: Regular rate, Normal S1, Normal S2 Abdomen: Normal bowel sounds, Soft, No tenderness Extremities: No clubbing, No cyanosis Skin: No breakdown, No significant lesion Neuro: Normal speech Psych/Mental Status: Mental status NL, Mood NL MUSCULOSKELETAL: No joint tenderness, No deformity, No swelling Vitals VITALS Vital Signs Date Time Temp Pulse Resp B/P (MAP) Pulse Ox O2 Delivery O2 Flow Rate FiO2 07/20/18 10:52 97.8 72 17 163/80 (107) 98 Room Air 97.8 Labs Labs Laboratory Tests Test 07/19/18 15:55 07/19/18 20:54 07/20/18 03:15 07/20/18 08:06 White Blood Count 9.2 x10^3/uL (4.0-11.0) 7.3 x10^3/uL (4.0-11.0) Red Blood Count 4.63 x10^6/uL (3.50-5.40) 4.54 x10^6/uL (3.50-5.40) Hemoglobin 12.1 g/dL (12.0-15.5) 11.7 g/dL (12.0-15.5) Hematocrit 39.1 % (36.0-47.0) 37.9 % (36.0-47.0) Mean Corpuscular Volume 85 fL (79-100) 83 fL (79-100) Mean Corpuscular Hemoglobin 26 pg (25-35) 26 pg (25-35) Mean Corpuscular Hemoglobin Concent 31 g/dL (31-37) 31 g/dL (31-37) Red Cell Distribution Width 19.8 % (11.5-14.5) 20.4 % (11.5-14.5) Platelet Count 277 x10^3/uL (140-400) 243 x10^3/uL (140-400) Neutrophils (%) (Auto) 52 % (31-73) 55 % (31-73) Lymphocytes (%) (Auto) 38 % (24-48) 32 % (24-48) Monocytes (%) (Auto) 9 % (0-9) 11 % (0-9) Eosinophils (%) (Auto) 1 % (0-3) 2 % (0-3) Basophils (%) (Auto) 1 % (0-3) 0 % (0-3) Neutrophils # (Auto) 4.8 x10^3uL (1.8-7.7) 4.0 x10^3uL (1.8-7.7) Lymphocytes # (Auto) 3.5 x10^3/uL (1.0-4.8) 2.4 x10^3/uL (1.0-4.8) Monocytes # (Auto) 0.8 x10^3/uL (0.0-1.1) 0.8 x10^3/uL (0.0-1.1) Eosinophils # (Auto) 0.1 x10^3/uL (0.0-0.7) 0.1 x10^3/uL (0.0-0.7) Basophils # (Auto) 0.1 x10^3/uL (0.0-0.2) 0.0 x10^3/uL (0.0-0.2) Sodium Level 137 mmol/L (136-145) 137 mmol/L (136-145) Potassium Level 3.7 mmol/L (3.5-5.1) 4.2 mmol/L (3.5-5.1) Chloride Level 96 mmol/L (98-107) 98 mmol/L (98-107) Carbon Dioxide Level 25 mmol/L (21-32) 26 mmol/L (21-32) Anion Gap 16 (6-14) 13 (6-14) Blood Urea Nitrogen 49 mg/dL (7-20) 57 mg/dL (7-20) Creatinine 9.3 mg/dL (0.6-1.0) 9.8 mg/dL (0.6-1.0) Estimated GFR (Cockcroft-Gault) 5.8 5.5 BUN/Creatinine Ratio 5 (6-20) Glucose Level 332 mg/dL (70-99) 180 mg/dL (70-99) Calcium Level 9.3 mg/dL (8.5-10.1) 8.8 mg/dL (8.5-10.1) Total Bilirubin 0.4 mg/dL (0.2-1.0) Aspartate Amino Transf (AST/SGOT) 17 U/L (15-37) Alanine Aminotransferase (ALT/SGPT) 14 U/L (14-59) Alkaline Phosphatase 58 U/L (46-116) Troponin I Quantitative < 0.017 ng/mL (0.000-0.055) 0.017 ng/mL (0.000-0.055) Total Protein 8.5 g/dL (6.4-8.2) Albumin 3.6 g/dL (3.4-5.0) 3.2 g/dL (3.4-5.0) Albumin/Globulin Ratio 0.7 (1.0-1.7) Lipase 167 U/L (73-393) Glucose (Fingerstick) 295 mg/dL (70-99) 188 mg/dL (70-99) Phosphorus Level 7.0 mg/dL (2.6-4.7) Laboratory Tests Test 07/19/18 15:55 07/19/18 20:54 07/20/18 03:15 07/20/18 08:06 White Blood Count 9.2 x10^3/uL (4.0-11.0) 7.3 x10^3/uL (4.0-11.0) Red Blood Count 4.63 x10^6/uL (3.50-5.40) 4.54 x10^6/uL (3.50-5.40) Hemoglobin 12.1 g/dL (12.0-15.5) 11.7 g/dL (12.0-15.5) Hematocrit 39.1 % (36.0-47.0) 37.9 % (36.0-47.0) Mean Corpuscular Volume 85 fL (79-100) 83 fL (79-100) Mean Corpuscular Hemoglobin 26 pg (25-35) 26 pg (25-35) Mean Corpuscular Hemoglobin Concent 31 g/dL (31-37) 31 g/dL (31-37) Red Cell Distribution Width 19.8 % (11.5-14.5) 20.4 % (11.5-14.5) Platelet Count 277 x10^3/uL (140-400) 243 x10^3/uL (140-400) Neutrophils (%) (Auto) 52 % (31-73) 55 % (31-73) Lymphocytes (%) (Auto) 38 % (24-48) 32 % (24-48) Monocytes (%) (Auto) 9 % (0-9) 11 % (0-9) Eosinophils (%) (Auto) 1 % (0-3) 2 % (0-3) Basophils (%) (Auto) 1 % (0-3) 0 % (0-3) Neutrophils # (Auto) 4.8 x10^3uL (1.8-7.7) 4.0 x10^3uL (1.8-7.7) Lymphocytes # (Auto) 3.5 x10^3/uL (1.0-4.8) 2.4 x10^3/uL (1.0-4.8) Monocytes # (Auto) 0.8 x10^3/uL (0.0-1.1) 0.8 x10^3/uL (0.0-1.1) Eosinophils # (Auto) 0.1 x10^3/uL (0.0-0.7) 0.1 x10^3/uL (0.0-0.7) Basophils # (Auto) 0.1 x10^3/uL (0.0-0.2) 0.0 x10^3/uL (0.0-0.2) Sodium Level 137 mmol/L (136-145) 137 mmol/L (136-145) Potassium Level 3.7 mmol/L (3.5-5.1) 4.2 mmol/L (3.5-5.1) Chloride Level 96 mmol/L (98-107) 98 mmol/L (98-107) Carbon Dioxide Level 25 mmol/L (21-32) 26 mmol/L (21-32) Anion Gap 16 (6-14) 13 (6-14) Blood Urea Nitrogen 49 mg/dL (7-20) 57 mg/dL (7-20) Creatinine 9.3 mg/dL (0.6-1.0) 9.8 mg/dL (0.6-1.0) Estimated GFR (Cockcroft-Gault) 5.8 5.5 BUN/Creatinine Ratio 5 (6-20) Glucose Level 332 mg/dL (70-99) 180 mg/dL (70-99) Calcium Level 9.3 mg/dL (8.5-10.1) 8.8 mg/dL (8.5-10.1) Total Bilirubin 0.4 mg/dL (0.2-1.0) Aspartate Amino Transf (AST/SGOT) 17 U/L (15-37) Alanine Aminotransferase (ALT/SGPT) 14 U/L (14-59) Alkaline Phosphatase 58 U/L (46-116) Troponin I Quantitative < 0.017 ng/mL (0.000-0.055) 0.017 ng/mL (0.000-0.055) Total Protein 8.5 g/dL (6.4-8.2) Albumin 3.6 g/dL (3.4-5.0) 3.2 g/dL (3.4-5.0) Albumin/Globulin Ratio 0.7 (1.0-1.7) Lipase 167 U/L (73-393) Glucose (Fingerstick) 295 mg/dL (70-99) 188 mg/dL (70-99) Phosphorus Level 7.0 mg/dL (2.6-4.7) Images Images HISTORY: Right upper quadrant pain. COMPARISON: None. FINDINGS: Sonographic evaluation of the right upper quadrant was performed. The liver appears normal in parenchymal echotexture. There are no focal lesions. The gallbladder is unremarkable without evidence of stones, wall thickening or pericholecystic fluid. There is no sonographic Bartlett sign. The common duct measures 5 mm. The visualized portions of the head of the pancreas reveal no abnormality. The right kidney measures 8.7 cm. Cortical thickness is preserved. Cortical echogenicity is mildly increased. There is no hydronephrosis. The visualized portions of the abdominal aorta and inferior vena cava are grossly patent and normal in caliber. IMPRESSION: 1. No cause for pain is identified. 2. Increased right renal cortical echogenicity is consistent with intrinsic renal disease. Assessment/Plan Assessment/Plan IMP CHEST PAIN ESRD DM I HTN ANEMIA PLAN CARDIOLOGY EVALUATION HOME MEDS NORVASC STARTED TODAY HD TOMORROW THEN TTS WILL FOLLOW KENDELL LORENZANA MD Jul 20, 2018 11:58
--- NOTE | 2018-07-20 12:17 | PDOC2 ---
CARDIOLOGY CONSULT NOTE CHEIF COMPLAINT: Chest discomfort HPI: Patient is a pleasant 37-year-old woman with past medical history as noted below presenting to the hospital in the setting of some chest discomfort. She has a long-standing history of multiple comorbidities as noted and in this setting had some discomfort in her chest. She did not associate this discomfort with any activity nor was there any associated shortness of breath. She reports that this felt like a sharp pain. She does not recall any trauma. No significant alleviating or aggravating factors. No association with food. Patient had stress testing as noted at [facility] and these were reviewed. Since admission the hospital the patient feels better and wishes to go home. No syncope, palpitations, orthopnea or PND. She has been tolerating her dialysis well. PMHX: 1. End-stage renal disease with a left thigh fistula for dialysis 2. Hypertension 3. Dyslipidemia 4. Depression 5. Type 1 diabetes SOCHX: No alcohol, tobacco or illicit drug use. She works in sales. FAMHX: Notable for kidney disease. No history of sudden cardiac . CURRENT MEDS: Current Medications Medications (Trade) Dose Ordered Sig/Anh Start Time Stop Time Status Last Admin Dose Admin Amlodipine Besylate (Norvasc) 10 mg DAILY 07/20/18 09:00 Aspirin (Children'S Aspirin) 324 mg 1X ONCE 07/19/18 17:45 07/19/18 17:50 DC 07/19/18 17:45 324 MG Carvedilol (Coreg) 12.5 mg BIDWMEALS 07/20/18 08:00 Citalopram Hydrobromide (CeleXA) 10 mg HS 07/19/18 21:00 07/19/18 21:00 10 MG Clonidine HCl (Catapres) 0.1 mg 1X ONCE 07/19/18 17:45 07/19/18 17:50 DC 07/19/18 17:45 0.1 MG Dextrose (Dextrose 50%-Water Syringe) 12.5 gm PRN Q15MIN PRN 07/19/18 21:00 Fentanyl Citrate (Fentanyl 2ml Vial) 25 mcg 1X ONCE 07/19/18 16:15 07/19/18 16:16 DC 07/19/18 16:20 25 MCG Heparin Sodium (Porcine) (Heparin Sodium) 5,000 unit Q8HRS 07/20/18 14:00 Hydralazine HCl (Apresoline Inj) 10 mg PRN Q4HRS PRN 07/19/18 18:45 07/20/18 03:47 10 MG Insulin Human Lispro (HumaLOG) 0-5 UNITS TIDWMEALS 07/20/18 08:00 Loperamide HCl (Imodium) 2 mg PRN Q8HRS PRN 07/19/18 20:00 07/19/18 20:10 2 MG Ondansetron HCl (Zofran) 4 mg 1X ONCE 07/19/18 16:00 07/19/18 16:02 DC 07/19/18 16:05 4 MG Pantoprazole Sodium (Protonix) 40 mg DAILYAC 07/20/18 07:30 Sodium Chloride 1,000 ml @ 1,000 mls/hr 1X ONCE 07/19/18 16:15 07/19/18 17:14 DC 07/19/18 16:15 1,000 MLS/HR ALLERGIES: Allergies Coded Allergies Type Severity Reaction Last Updated Verified No Known Drug Allergies 07/19/18 No ROS: Negative for 10 out of 14 systems reviewed unless otherwise mentioned above in history of present illness PHYSICAL EXAM: Vital Signs: Vital Signs Date Time Temp Pulse Resp B/P (MAP) Pulse Ox O2 Delivery O2 Flow Rate FiO2 07/20/18 10:52 97.8 72 17 163/80 (107) 98 Room Air 97.8 I & O Intake and Output 07/20/18 07:00 Intake Total 700 ml Output Total 300 ml Balance 400 ml Intake Oral 200 ml IV Total 500 ml Output Urine Total 300 ml # Voids 1 Physical Exam: The patient appeared well nourished and normally developed. Head exam is unremarkable. No scleral icterus or corneal arcus noted. Neck is without jugular venous distension, thyromegaly, or carotid bruits. Carotid upstrokes are brisk bilaterally. Lungs are clear to auscultation and percussion. Cardiac exam reveals the PMI to be normally sized and situated. Rhythm is regular. First and second heart sounds normal. No murmurs, rubs or gallops. Abdominal exam reveals normal bowel sounds, no masses, no organomegaly and no aortic enlargement. Extremities are nonedematous. L thigh fistula is well functioning. Diminished radial pulses. Msk: No traumua Neuro: No focal deficits DIAGNOSTIC TESTING: Cardiac enzymes are negative. Chest x-ray is unremarkable EKG demonstrates no acute findings with mild left axis deviation and possible prior anteroseptal infarct although this may be related to lead placement Stress test in 2016 at [facility] was within normal limits Echocardiogram in October 2017 at [facility] was within normal limits. ASSESSMENT: 1. Atypical chest pain likely related to either muscular skeletal etiology or neuropathic pain. 2. Hypertension 3. End-stage renal disease PLAN: -Patient overall is feeling better since her blood pressures been better controlled. Given that she's had negative stress testing and echocardiogram in the last one to 2 years with the non-concerning EKG and a negative biomarker study okay to discharge from a cardiac standpoint with close follow-up with her primary transplant and cardiology team at [facility]. If she wishes to remain in the hospital we could consider repeat echocardiogram in the near future otherwise supportive care. Continue dialysis per her usual schedule. JAZMIN HARLEY MD Jul 20, 2018 12:17
[2018-07-20] MEDS ORDERED: Pantoprazole PO (13:31)
[2018-07-20] MEDS ORDERED: FAMO-63 PO (13:35)
--- NOTE | 2018-07-20 13:37 | PDOC3 ---
Discharge Summary Visit Information Date of Admission: Jul 19, 2018 Date of Discharge: Jul 20, 2018 Admitting Diagnosis: chest pain Final Diagnosis 1. chest pain 2. ESRD on dialysis 4. diabetes suboptimal control 5. morbid obesity 6. HYPERTENSION 7. GERD Problems Medical Problems: (1) Chest pain Status: Acute (2) Shortness of breath Status: Acute Brief Hospital Course Allergies Allergies Coded Allergies Type Severity Reaction Last Updated Verified No Known Drug Allergies 07/19/18 No Vital Signs Vital Signs Date Time Temp Pulse Resp B/P (MAP) Pulse Ox O2 Delivery O2 Flow Rate FiO2 07/20/18 13:13 72 163/80 07/20/18 10:52 97.8 17 98 Room Air 97.8 Lab Results Laboratory Tests Test 07/19/18 15:55 07/19/18 20:54 07/20/18 03:15 07/20/18 08:06 White Blood Count 9.2 x10^3/uL (4.0-11.0) 7.3 x10^3/uL (4.0-11.0) Red Blood Count 4.63 x10^6/uL (3.50-5.40) 4.54 x10^6/uL (3.50-5.40) Hemoglobin 12.1 g/dL (12.0-15.5) 11.7 g/dL (12.0-15.5) Hematocrit 39.1 % (36.0-47.0) 37.9 % (36.0-47.0) Mean Corpuscular Volume 85 fL (79-100) 83 fL (79-100) Mean Corpuscular Hemoglobin 26 pg (25-35) 26 pg (25-35) Mean Corpuscular Hemoglobin Concent 31 g/dL (31-37) 31 g/dL (31-37) Red Cell Distribution Width 19.8 % (11.5-14.5) 20.4 % (11.5-14.5) Platelet Count 277 x10^3/uL (140-400) 243 x10^3/uL (140-400) Neutrophils (%) (Auto) 52 % (31-73) 55 % (31-73) Lymphocytes (%) (Auto) 38 % (24-48) 32 % (24-48) Monocytes (%) (Auto) 9 % (0-9) 11 % (0-9) Eosinophils (%) (Auto) 1 % (0-3) 2 % (0-3) Basophils (%) (Auto) 1 % (0-3) 0 % (0-3) Neutrophils # (Auto) 4.8 x10^3uL (1.8-7.7) 4.0 x10^3uL (1.8-7.7) Lymphocytes # (Auto) 3.5 x10^3/uL (1.0-4.8) 2.4 x10^3/uL (1.0-4.8) Monocytes # (Auto) 0.8 x10^3/uL (0.0-1.1) 0.8 x10^3/uL (0.0-1.1) Eosinophils # (Auto) 0.1 x10^3/uL (0.0-0.7) 0.1 x10^3/uL (0.0-0.7) Basophils # (Auto) 0.1 x10^3/uL (0.0-0.2) 0.0 x10^3/uL (0.0-0.2) Sodium Level 137 mmol/L (136-145) 137 mmol/L (136-145) Potassium Level 3.7 mmol/L (3.5-5.1) 4.2 mmol/L (3.5-5.1) Chloride Level 96 mmol/L (98-107) 98 mmol/L (98-107) Carbon Dioxide Level 25 mmol/L (21-32) 26 mmol/L (21-32) Anion Gap 16 (6-14) 13 (6-14) Blood Urea Nitrogen 49 mg/dL (7-20) 57 mg/dL (7-20) Creatinine 9.3 mg/dL (0.6-1.0) 9.8 mg/dL (0.6-1.0) Estimated GFR (Cockcroft-Gault) 5.8 5.5 BUN/Creatinine Ratio 5 (6-20) Glucose Level 332 mg/dL (70-99) 180 mg/dL (70-99) Calcium Level 9.3 mg/dL (8.5-10.1) 8.8 mg/dL (8.5-10.1) Total Bilirubin 0.4 mg/dL (0.2-1.0) Aspartate Amino Transf (AST/SGOT) 17 U/L (15-37) Alanine Aminotransferase (ALT/SGPT) 14 U/L (14-59) Alkaline Phosphatase 58 U/L (46-116) Troponin I Quantitative < 0.017 ng/mL (0.000-0.055) 0.017 ng/mL (0.000-0.055) Total Protein 8.5 g/dL (6.4-8.2) Albumin 3.6 g/dL (3.4-5.0) 3.2 g/dL (3.4-5.0) Albumin/Globulin Ratio 0.7 (1.0-1.7) Lipase 167 U/L (73-393) Glucose (Fingerstick) 295 mg/dL (70-99) 188 mg/dL (70-99) Phosphorus Level 7.0 mg/dL (2.6-4.7) Test 07/20/18 11:53 Glucose (Fingerstick) 150 mg/dL (70-99) Laboratory Tests Test 07/19/18 15:55 07/19/18 20:54 07/20/18 03:15 07/20/18 08:06 White Blood Count 9.2 x10^3/uL (4.0-11.0) 7.3 x10^3/uL (4.0-11.0) Red Blood Count 4.63 x10^6/uL (3.50-5.40) 4.54 x10^6/uL (3.50-5.40) Hemoglobin 12.1 g/dL (12.0-15.5) 11.7 g/dL (12.0-15.5) Hematocrit 39.1 % (36.0-47.0) 37.9 % (36.0-47.0) Mean Corpuscular Volume 85 fL (79-100) 83 fL (79-100) Mean Corpuscular Hemoglobin 26 pg (25-35) 26 pg (25-35) Mean Corpuscular Hemoglobin Concent 31 g/dL (31-37) 31 g/dL (31-37) Red Cell Distribution Width 19.8 % (11.5-14.5) 20.4 % (11.5-14.5) Platelet Count 277 x10^3/uL (140-400) 243 x10^3/uL (140-400) Neutrophils (%) (Auto) 52 % (31-73) 55 % (31-73) Lymphocytes (%) (Auto) 38 % (24-48) 32 % (24-48) Monocytes (%) (Auto) 9 % (0-9) 11 % (0-9) Eosinophils (%) (Auto) 1 % (0-3) 2 % (0-3) Basophils (%) (Auto) 1 % (0-3) 0 % (0-3) Neutrophils # (Auto) 4.8 x10^3uL (1.8-7.7) 4.0 x10^3uL (1.8-7.7) Lymphocytes # (Auto) 3.5 x10^3/uL (1.0-4.8) 2.4 x10^3/uL (1.0-4.8) Monocytes # (Auto) 0.8 x10^3/uL (0.0-1.1) 0.8 x10^3/uL (0.0-1.1) Eosinophils # (Auto) 0.1 x10^3/uL (0.0-0.7) 0.1 x10^3/uL (0.0-0.7) Basophils # (Auto) 0.1 x10^3/uL (0.0-0.2) 0.0 x10^3/uL (0.0-0.2) Sodium Level 137 mmol/L (136-145) 137 mmol/L (136-145) Potassium Level 3.7 mmol/L (3.5-5.1) 4.2 mmol/L (3.5-5.1) Chloride Level 96 mmol/L (98-107) 98 mmol/L (98-107) Carbon Dioxide Level 25 mmol/L (21-32) 26 mmol/L (21-32) Anion Gap 16 (6-14) 13 (6-14) Blood Urea Nitrogen 49 mg/dL (7-20) 57 mg/dL (7-20) Creatinine 9.3 mg/dL (0.6-1.0) 9.8 mg/dL (0.6-1.0) Estimated GFR (Cockcroft-Gault) 5.8 5.5 BUN/Creatinine Ratio 5 (6-20) Glucose Level 332 mg/dL (70-99) 180 mg/dL (70-99) Calcium Level 9.3 mg/dL (8.5-10.1) 8.8 mg/dL (8.5-10.1) Total Bilirubin 0.4 mg/dL (0.2-1.0) Aspartate Amino Transf (AST/SGOT) 17 U/L (15-37) Alanine Aminotransferase (ALT/SGPT) 14 U/L (14-59) Alkaline Phosphatase 58 U/L (46-116) Troponin I Quantitative < 0.017 ng/mL (0.000-0.055) 0.017 ng/mL (0.000-0.055) Total Protein 8.5 g/dL (6.4-8.2) Albumin 3.6 g/dL (3.4-5.0) 3.2 g/dL (3.4-5.0) Albumin/Globulin Ratio 0.7 (1.0-1.7) Lipase 167 U/L (73-393) Glucose (Fingerstick) 295 mg/dL (70-99) 188 mg/dL (70-99) Phosphorus Level 7.0 mg/dL (2.6-4.7) Test 07/20/18 11:53 Glucose (Fingerstick) 150 mg/dL (70-99) Brief Hospital Course Ms. Price is a 37 old admti with chest pain, GERD Discharge Information Condition at Discharge: Improved Follow Up: Weeks Disposition/Orders: D/C to Home Scheduled Amlodipine Besylate (Amlodipine Besylate) 10 Mg Tablet, 10 MG PO DAILY for htn, (Reported) Entered as Reported by: DENISHA LITTLEJOHN RN on 07/19/181828 Last Taken: Unknown Dose on 07/11/18 Last Action: Continued on 07/19/181843 by DENISHA LITTLEJOHN RN Carvedilol (Coreg ) 12.5 Mg Tablet, 12.5 MG PO BIDWMEALS for CARDIAC, ( Reported) Entered as Reported by: DENISHA LITTLEJOHN RN on 07/19/181833 Last Taken: Unknown Dose on 07/11/18 Last Action: Continued on 07/19/181843 by DENISHA LITTLEJOHN RN Citalopram Hydrobromide (Celexa) 10 Mg Tablet, 1 TAB PO DAILY for anxiety/ depression, #30 Ref 2 (Reported) Entered as Reported by: DENISHA LITTLEJOHN RN on 07/19/181833 Last Taken: Unknown Dose on 07/18/18 Last Action: Continued on 07/19/181843 by DENISHA LITTLEJOHN RN Famotidine (Pepcid) 20 Mg Tablet, 20 MG PO HS for heartburn, #30 Prescribed by: ROMY LOOMIS on 07/20/18 1335 Patient Instructions Patient Instructions ABd US The gallbladder is unremarkable without evidence of stones, wall thickening or pericholecystic fluid. There is no sonographic Bartlett sign. on sono face to face < 30 min ROMY LOOMIS MD Jul 20, 2018 13:37
[2018-07-20] MEDS ORDERED: HEPARIN for SUB-Q USE 5,000 UNIT/ML VIAL. SQ SCH (14:00)
[2018-07-20 14:19] VITALS: BP 145/68
--- NOTE | 2018-07-20 14:22 | NUR ---
PATIENTS IV OUT AND MONITOR OFF. PRESCRIPTION FOR PEPCID GIVEN TO PATIENT. DISCUSSED FOLLOW UP WITH PATIENT. PATIENT HAS NO QUESTIONS AT THIS TIME. PATIENT ESCORTED TO PERSONAL VEHICLE.
--- NOTE | 2018-07-21 07:41 | EKG ---
[facility] [address] [place] [address] Test Date: 2018-07-19 Test Time: 15:47:17 Pat Name: ESTEFANI MG Department: Room: 211 1 Gender: F [employer]: : [id number] Requested By: MONICA ROSENBAUM Order Number: [id number] Reading MD: Justin Vargas Measurements Intervals [place] Rate: 88 P: -72 [place]: 170 QRS: -16 QRSD: 66 T: 87 QT: 418 QTc: 510 Interpretive Statements SINUS RHYTHM LEFTWARD AXIS CONSIDER LEFT VENTRICULAR HYPERTROPHY QRS(T) CONTOUR ABNORMALITY CONSIDER ANTEROSEPTAL INFARCT Electronically Signed On 07-28-2018 12:41:35 CDT by Justin Vargas
== END 2018-07-20 14:24 | disposition home or self-care (01) | DRG 391 ==
LOC: ER 15:39 → 2 NORTH 17:40
PROVIDERS: ADMIT Family Medicine; ATTEND Family Medicine
DX: K21.9 Gastro-esophageal reflux disease without esophagitis (principal); N18.6 End stage renal disease; I12.0 Hypertensive chronic kidney disease with stage 5 chronic kidney disease or end stage renal disease; R07.89 Other chest pain; E10.22 Type 1 diabetes mellitus with diabetic chronic kidney disease; E66.01 Morbid (severe) obesity due to excess calories; F32.9 Major depressive disorder, single episode, unspecified; D64.9 Anemia, unspecified; E78.5 Hyperlipidemia, unspecified; Z98.891 History of uterine scar from previous surgery; Z82.49 Family history of ischemic heart disease and other diseases of the circulatory system; Z83.3 Family history of diabetes mellitus; Z79.4 Long term (current) use of insulin; Z99.2 Dependence on renal dialysis; Z68.39 Body mass index [BMI] 39.0-39.9, adult
CPT/HCPCS: 36415; 71045; 76705; 80053; 80069; 82962; 83690; 84484; 85025; 93005; 96361; 96374; 96375; J0360; J1815; J2405; J3010; J7030; 99285-25

== ENCOUNTER 2019-01-07 17:59 | Emergency (ER) | payer MEDICARE ==
[~2019-01-07] VITALS: Ht 167.6 cm; Wt 94.8 kg
[~2019-01-07 17:59] MED LIST changes: +AMLO10TA8 PO; +CALC667T4 PO; +CARV12.5 PO; +CITA10TA8 PO; +CLON0.1T12 PO; +FAMO-63 PO; +ONDA4TAB12 PO; +Pantoprazole PO
--- NOTE | 2019-01-07 18:51 | PHYS DOC ---
Past Medical History Past Medical History: Diabetes-Type II, Hypertension, Renal Failure Past Surgical History: Additional Past Surgical Histo: PERITONEAL SURGERY Alcohol Use: None Drug Use: None Adult General Chief Complaint Chief Complaint: ABDOMINAL PAIN HPI HPI 38-year-old female presents to the emergency department with complaints of right lower quadrant abdominal pain. Patient states that 2 weeks ago she had similar complaints she was seen at with CT scan and ultrasound performed which was unremarkable. Denies any fevers however has had some intermittent chills. She as well describes 2 days of vomiting. She describes the pain as stabbing. She states movement, coughing makes her pain worse. She denies any vaginal discharge. Patient has underlying history of HTN Review of Systems Review of Systems Constitutional: intermittent fever/chills Respiratory: Denies cough or shortness of breath [] Cardiovascular: No additional information not addressed in HPI [] GI: RLQ abdominal pain, vomiting : Denies dysuria or hematuria [] Musculoskeletal: Denies back pain or joint pain [] Neurologic: Denies headache, focal weakness or sensory changes [] All other systems were reviewed and found to be within normal limits, except as documented in this note. Current Medications Current Medications Current Medications Medications (Trade) Dose Ordered Sig/Anh Start Time Stop Time Status Last Admin Dose Admin Hydralazine HCl (Apresoline Inj) 10 mg 1X ONCE 01/07/19 19:00 01/07/19 19:01 DC Iohexol (Omnipaque 300 Mg/ml) 100 ml STK-MED ONCE 01/07/19 20:58 01/07/19 20:59 DC Morphine Sulfate (Morphine Sulfate) 4 mg 1X ONCE 01/07/19 19:00 01/07/19 19:01 DC 01/07/19 20:22 4 MG Ondansetron HCl (Zofran) 4 mg 1X ONCE 01/07/19 19:00 01/07/19 19:01 DC 01/07/19 20:21 4 MG Allergies Allergies Allergies Coded Allergies Type Severity Reaction Last Updated Verified latex Allergy Intermediate RASH 10/30/18 Yes Physical Exam Physical Exam Constitutional: Well developed, well nourished, mild distress 2/2 pain, non- toxic appearance. [] HENT: Normocephalic, atraumatic, bilateral external ears normal, oropharynx moist, no oral exudates, nose normal. [] Eyes: PERRLA, EOMI, conjunctiva normal, no discharge. [] Cardiovascular:Heart rate regular rhythm, no murmur [] Lungs & Thorax: Bilateral breath sounds clear to auscultation [] Abdomen: TTP RLQ, + mcburney tenderness on exam, + rovsings sign, no masses, no pulsatile masses. [] Skin: Warm, dry, no erythema, no rash. [] Back: No tenderness, no CVA tenderness. [] Extremities: No tenderness, no edema. [] Neurologic: Alert and oriented X 3, no focal deficits noted. [] Psychologic: Affect normal, judgement normal, mood normal. [] Current Patient Data Vital Signs Vital Signs Date Time Temp Pulse Resp B/P (MAP) Pulse Ox O2 Delivery O2 Flow Rate FiO2 01/07/19 20:22 Room Air 01/07/19 18:16 97.8 73 20 244/115 (158) 100 97.8 Lab Values Laboratory Tests Test 01/07/19 19:48 01/07/19 20:32 White Blood Count 7.9 x10^3/uL (4.0-11.0) Red Blood Count 3.43 x10^6/uL (3.50-5.40) L Hemoglobin 9.3 g/dL (12.0-15.5) L Hematocrit 28.3 % (36.0-47.0) L Mean Corpuscular Volume 83 fL (79-100) Mean Corpuscular Hemoglobin 27 pg (25-35) Mean Corpuscular Hemoglobin Concent 33 g/dL (31-37) Red Cell Distribution Width 18.0 % (11.5-14.5) H Platelet Count 193 x10^3/uL (140-400) Neutrophils (%) (Auto) 67 % (31-73) Lymphocytes (%) (Auto) 24 % (24-48) Monocytes (%) (Auto) 7 % (0-9) Eosinophils (%) (Auto) 1 % (0-3) Basophils (%) (Auto) 1 % (0-3) Neutrophils # (Auto) 5.3 x10^3/uL (1.8-7.7) Lymphocytes # (Auto) 1.9 x10^3/uL (1.0-4.8) Monocytes # (Auto) 0.6 x10^3/uL (0.0-1.1) Eosinophils # (Auto) 0.1 x10^3/uL (0.0-0.7) Basophils # (Auto) 0.0 x10^3/uL (0.0-0.2) Sodium Level 140 mmol/L (136-145) Potassium Level 4.6 mmol/L (3.5-5.1) Chloride Level 103 mmol/L (98-107) Carbon Dioxide Level 25 mmol/L (21-32) Anion Gap 12 (6-14) Blood Urea Nitrogen 73 mg/dL (7-20) H Creatinine 11.7 mg/dL (0.6-1.0) H Estimated GFR (Cockcroft-Gault) 4.4 BUN/Creatinine Ratio 6 (6-20) Glucose Level 103 mg/dL (70-99) H Calcium Level 8.6 mg/dL (8.5-10.1) Total Bilirubin 0.3 mg/dL (0.2-1.0) Aspartate Amino Transferase (AST) 18 U/L (15-37) Alanine Aminotransferase (ALT) 19 U/L (14-59) Alkaline Phosphatase 61 U/L (46-116) Total Protein 8.1 g/dL (6.4-8.2) Albumin 3.0 g/dL (3.4-5.0) L Albumin/Globulin Ratio 0.6 (1.0-1.7) L Urine Collection Type Void Urine Color Yellow Urine Clarity Clear Urine pH 7.5 Urine Specific Volin 1.020 Urine Protein >=300 mg/dL (NEG-TRACE) Urine Glucose (UA) 100 mg/dL (NEG) Urine Ketones (Stick) Negative mg/dL (NEG) Urine Blood Small (NEG) Urine Nitrite Negative (NEG) Urine Bilirubin Negative (NEG) Urine Urobilinogen Dipstick 0.2 mg/dL (0.2 mg/dL) Urine Leukocyte Esterase Negative (NEG) Urine RBC Occ /HPF (0-2) Urine WBC 1-4 /HPF (0-4) Urine Squamous Epithelial Cells Few /LPF Urine Bacteria Few /HPF (0-FEW) Urine Test Negative (NEG) Laboratory Tests 01/07/19 19:48 Laboratory Tests 01/07/19 19:48 EKG EKG [] Radiology/Procedures Radiology/Procedures [facility] [address] [place] [address] IMAGING REPORT Signed PATIENT: ESTEFANI MG DACCOUNT: [id number] : 1980 LOCATION: ER AGE: 38 SEX: F EXAM STATUS: REG ER ORD. PHYSICIAN: LORI TELLEZ MD REASON: abd pain RLQ, HD patient (ok for contrast) PROCEDURE: CT ABD PELV W/ IV CONTRST ONLY Exam: CT abdomen and pelvis with contrast INDICATION: Abdominal pain, right lower quadrant TECHNIQUE: Sequential axial images through the abdomen and pelvis obtained following the administration of 75 mL of Omni 300 IV contrast. Sagittal and coronal reformatted images were reconstructed from the axial data and reviewed. Comparisons: CT 10/30/2018 FINDINGS: Heart is mildly enlarged. No pericardial effusion. Visualized lung bases are clear. No pleural effusion. Liver, spleen, pancreas, gallbladder and adrenals are unremarkable. Kidneys demonstrate symmetric enhancement. No perinephric inflammation or hydronephrosis. No renal or ureteral calculi are identified. Bladder is decompressed not well evaluated. Uterus is not enlarged. No abnormal adnexal mass. Several diverticula noted within the colon without evidence of acute diverticulitis. Otherwise, Large and small bowel are unremarkable. Appendix is normal. No free intra-abdominal air or fluid. No obstruction. Abdominal aorta has a normal course and caliber. Abdominal vasculature is patent. Partially visualized left femoral bypass graft is noted. No enlarged intra-abdominal lymph nodes are identified. No suspicious osseous lesions or acute fractures. IMPRESSION: 1. Normal appendix. No acute process identified within the abdomen or pelvis. 2. Diverticulosis without evidence of acute diverticulitis. Exposure: One or more of the following in the visualized dose reduction techniques were utilized for this examination: 1. Automated exposure control 2. Adjustment of the MA and/or KV according to patient size 3. Use of iterative of reconstructive technique Electronically signed by: Andree Conteh MD (01/07/2019 9:20 PM) [facility] DICTATED and SIGNED BY: ANDREE CONTEH MD DATE: 01/07/192119 [] Course & Med Decision Making Course & Med Decision Making Pertinent Labs and Imaging studies reviewed. (See chart for details) []38-year-old female presents to the emergency department with complaints of right lower quadrant abdominal pain. Patient states that 2 weeks ago she had similar complaints she was seen at with CT scan and ultrasound performed which was unremarkable. Denies any fevers however has had some intermittent chills. She as well describes 2 days of vomiting. She describes the pain as stabbing. She states movement, coughing makes her pain worse. She denies any vaginal discharge. Patient has underlying history of HTN Patient's labs were reviewed, white blood cell count 7.9 urinalysis without evidence of urinary tract infection, CT abdomen and pelvis negative for acute process, appendix is within normal limits. Patient's pain is improved she is resting comfortably at this time. Blood pressure did improve to 195/95. At this time will plan for discharge, Bentyl, Zofran will be provided upon discharge. Recommend following with hemodialysis as scheduled tomorrow. Discharge instructions discussed with patient at bedside, she voices understanding. Dragon Disclaimer Dragon Disclaimer This electronic medical record was generated, in whole or in part, using a voice recognition dictation system. Departure Departure Impression: Primary Impression: Abdominal pain Additional Impression: Nausea & vomiting Disposition: 01 HOME, SELF-CARE Condition: STABLE Referrals: UNKNOWN PCP NAME (PCP) Patient Instructions: Abdominal Pain (Nonspecific), Nausea and Vomiting, [id number] Additional Instructions: Recommend follow up with PCP 3 - 5 days Return to the ER with worsening symptoms, intractable pain, fever, altered mental status Tylenol/Motrin as needed for pain Zofran rx provided for nausea bentyl rx provided for pain Scripts Dicyclomine Hcl (DICYCLOMINE HCL) 20 Mg Tablet 1 TAB PO TID, #30 TAB 1 Refill Prov: LORI TELLEZ MD 01/07/19 Ondansetron Hcl (ZOFRAN) 4 Mg Tablet 1 TAB PO PRN Q6-8HRS, #12 TAB Prov: LORI TELLEZ MD 01/07/19 Problem Qualifiers Primary Impression: Abdominal pain Abdominal location: right lower quadrant Qualified Codes: R10.31 - Right lower quadrant pain Additional Impression: Nausea & vomiting Vomiting type: unspecified Vomiting Intractability: non-intractable Qu alified Codes: R11.2 - Nausea with vomiting, unspecified LORI TELLEZ MD Jan 07, 2019 18:51
[2019-01-07] MEDS: hydrALAZINE 20 MG/ML VIAL. IVP ONE ×2 (19:00→20:22)
[2019-01-07] MEDS ORDERED: MORPHINE SULFATE 4 MG/ML VIAL. IV ONE (19:00)
[2019-01-07] MEDS ORDERED: ONDANSETRON PF 4 MG/2 ML VIAL. IV ONE (19:00)
[2019-01-07 19:51] LABS: BASO % 1 % (0-3); EOS # 0.1 x10^3/uL (0.0-0.7); EOS % 1 % (0-3); HEMATOCRIT 28.3 % (36.0-47.0); HEMOGLOBIN 9.3 g/dL (12.0-15.5); LYMPH # 1.9 x10^3/uL (1.0-4.8); LYMPH % 24 % (24-48); MEAN CORPUSCULAR HEMOGLOBIN 27 pg (25-35); MEAN CORPUSCULAR HGB CONC 33 g/dL (31-37); MEAN CORPUSCULAR VOLUME 83 fL (79-100); MONO # 0.6 x10^3/uL (0.0-1.1); MONO % 7 % (0-9); NEUT # 5.3 x10^3/uL (1.8-7.7); NEUT % 67 % (31-73); PLATELET COUNT 193 x10^3/uL (140-400); RED BLOOD COUNT 3.43 x10^6/uL (3.50-5.40); WHITE BLOOD COUNT 7.9 x10^3/uL (4.0-11.0)
[2019-01-07 19:59] LABS: CALCIUM 8.6 mg/dL (8.5-10.1); CREATININE 11.7 mg/dL (0.6-1.0); GFR 4.4; POTASSIUM 4.6 mmol/L (3.5-5.1)
[2019-01-07 20:05] LABS: ALBUMIN/GLOBULIN RATIO 0.6 (1.0-1.7); TOTAL BILIRUBIN 0.3 mg/dL (0.2-1.0); TOTAL PROTEIN 8.1 g/dL (6.4-8.2)
[2019-01-07 20:51] LABS: BILIRUBIN,URINE NEGATIVE (NEG); CLARITY,URINE CLEAR; COLOR,URINE YELLOW; NITRITE,URINE NEGATIVE (NEG); PH,URINE 7.5; PROTEIN,URINE >=300 mg/dL (NEG-TRACE); UROBILINOGEN,URINE 0.2 mg/dL (0.2 mg/dL)
[2019-01-07 20:53] LABS: U PREG PATIENT NEGATIVE (NEG)
[2019-01-07] MEDS ORDERED: IOHEXOL 300 MG/ML 100ML VIAL. ONE (20:58)
[2019-01-07 21:00] LABS: BACTERIA,URINE FEW /HPF (0-FEW); RBC,URINE OCC /HPF (0-2); SQUAMOUS EPITHELIAL CELL,UR FEW /LPF
--- NOTE | 2019-01-07 21:23 | RAD ---
Exam: CT abdomen and pelvis with contrast INDICATION: Abdominal pain, right lower quadrant TECHNIQUE: Sequential axial images through the abdomen and pelvis obtained following the administration of 75 mL of Omni 300 IV contrast. Sagittal and coronal reformatted images were reconstructed from the axial data and reviewed. Comparisons: CT 10/30/2018 FINDINGS: Heart is mildly enlarged. No pericardial effusion. Visualized lung bases are clear. No pleural effusion. Liver, spleen, pancreas, gallbladder and adrenals are unremarkable. Kidneys demonstrate symmetric enhancement. No perinephric inflammation or hydronephrosis. No renal or ureteral calculi are identified. Bladder is decompressed not well evaluated. Uterus is not enlarged. No abnormal adnexal mass. Several diverticula noted within the colon without evidence of acute diverticulitis. Otherwise, Large and small bowel are unremarkable. Appendix is normal. No free intra-abdominal air or fluid. No obstruction. Abdominal aorta has a normal course and caliber. Abdominal vasculature is patent. Partially visualized left femoral bypass graft is noted. No enlarged intra-abdominal lymph nodes are identified. No suspicious osseous lesions or acute fractures. IMPRESSION: 1. Normal appendix. No acute process identified within the abdomen or pelvis. 2. Diverticulosis without evidence of acute diverticulitis. Exposure: One or more of the following in the visualized dose reduction techniques were utilized for this examination: 1. Automated exposure control 2. Adjustment of the MA and/or KV according to patient size 3. Use of iterative of reconstructive technique Electronically signed by: Andree Mitchell MD (01/07/2019 9:20 PM) [facility]
[2019-01-07] MEDS ORDERED: DICY20TA3 PO (21:37)
[2019-01-07] MEDS ORDERED: ONDA4TAB7 PO (21:37)
[2019-01-07 21:49] VITALS: BP 198/95
== END 2019-01-07 22:00 | disposition home or self-care (01) ==
LOC: ER 17:59
DX: R10.31 Right lower quadrant pain (principal); R11.2 Nausea with vomiting, unspecified; E11.9 Type 2 diabetes mellitus without complications; I10 Essential (primary) hypertension; N28.9 Disorder of kidney and ureter, unspecified; Z98.890 Other specified postprocedural states; Z91.040 Latex allergy status
CPT/HCPCS: 36415; 74177; 80053; 81001; 81025; 85025; 96374; 96375; 99285; J2270; J2405; J0360

== ENCOUNTER 2020-07-05 16:42 | Emergency (ER) | payer MEDICARE, OTHER ==
[~2020-07-05] VITALS: Ht 167.6 cm; Wt 98.0 kg
[~2020-07-05 16:42] MED LIST changes: +AMLO-187 PO; -AMLO10TA8 PO; +DICY20TA3 PO; +ONDA4TAB7 PO
[2020-07-05 17:41] VITALS: BP 118/69
[2020-07-05] MEDS ORDERED: LIDOCAINE 1% Multi-Dose 20 ML VIAL. ONE (17:51)
[2020-07-05] MEDS ORDERED: LIDOCAINE 1% Multi-Dose 20 ML VIAL. IJ ONE (18:00)
--- NOTE | 2020-07-05 19:51 | ED.ADGEN ---
Past Medical History Past Medical History: Diabetes-Type II, Hypertension, Renal Failure Past Surgical History: Additional Past Surgical Histo: PERITONEAL SURGERY Smoking Status: Never Smoker Alcohol Use: None Drug Use: None General Adult EDM: Chief Complaint: FOREIGNBODY EAR HPI: HPI: Patient is a 39 year old AA female who presents emergency department with complaints of a bug being stuck in her left ear since early this morning. Patient reports discomfort in her left ear, she denies any discharge, bleeding, or decreased hearing. Patient reports that she can feel something moving around inside of her left ear. She denies any known injury. The patient currently rates the discomfort a 10 out of 10 on the pain scale, she denies any alleviating factors. Review of Systems: Review of Systems: Complete ROS is negative unless otherwise noted in HPI. Current Medications: Current Medications Medications (Trade) Dose Ordered Sig/Anh Start Time Stop Time Status Last Admin Dose Admin Lidocaine HCl (Lidocaine 1% 20ml Vial) 20 ml STK-MED ONCE 07/05/20 17:51 07/05/20 17:51 DC Allergies: Allergies: Allergies Coded Allergies Type Severity Reaction Last Updated Verified latex Allergy Intermediate RASH 10/30/18 Yes Physical Exam: PE: See Above Constitutional: Well developed, well nourished, no acute distress, non-toxic appearance. [] HENT: Normocephalic, atraumatic, bilateral external ears normal, nose normal; visible brown bug inside the left ear canal, no bleeding, no drainage.. [] Eyes: PERRLA, EOMI, conjunctiva normal, no discharge. [] Neck: Normal range of motion, no stridor. [] Cardiovascular:Heart rate regular rhythm Lungs & Thorax: Respirations even and unlabored, no retractions, no respiratory distress Skin: Warm, dry, no erythema, no rash. [] Extremities: No cyanosis, ROM intact, no edema. [] Neurologic: Alert and oriented X 3, no focal deficits noted. [] Psychologic: Affect normal, judgement normal, mood normal. [] Current Patient Data: Vital Signs: Vital Signs Date Time Temp Pulse Resp B/P (MAP) Pulse Ox O2 Delivery O2 Flow Rate FiO2 07/05/20 17:41 97.3 70 16 118/69 (85) 98 Room Air 97.3 EKG: EKG: [] Heart Score: C/O Chest Pain: No Risk Factors: Risk Factors: DM, Current or recent (<one month) smoker, HTN, HLP, family history of CAD, obesity. Risk Scores: Score 0 - 3: 2.5% MACE over next 6 weeks - Discharge Home Score 4 - 6: 20.3% MACE over next 6 weeks - Admit for Clinical Observation Score 7 - 10: 72.7% MACE over next 6 weeks - Early Invasive Strategies Radiology/Procedures: Radiology/Procedures: Attempts to remove the bug from the patient's left ear were only partially successful. This practitioner tried to flush the bug out using a mixture of warm water and peroxide without success, I also tried to remove the bug using suction unsuccessfully. Dr. Bonner was able to remove most of the body of the insect with Baldomero forceps however complete removal of the bug was unsuccessful.. [] Course & Med Decision Making: Course & Med Decision Making Pertinent Labs and Imaging studies reviewed. (See chart for details) 1944-I spoke with Dr. Brizuela a physician on-call for ear nose and throat. I advised the patient that I am referring the patient to the office tomorrow so that the remainder of the bottle can be removed. No further recommendations from Dr. Brizuela. I will instruct patient to contact the office first thing tomorrow morning. Patient was encouraged to take Tylenol or ibuprofen as needed for pain. Follow- up with ENT tomorrow as planned. Patient verbalized an understanding of home care, medications, follow-up, and return to ED instructions and was in agreement with the plan of care. [] /////////////////////////////////////////////////////////////////////////// I oversaw on the above date of service of this patient and discussed the care with the [employer]. I attempted to extract foreign body from left ear and managed to extract half of carcass leaving behind hard shell, patient in pain. TM not perforated. Joint decision to discontinue further attempts for continued suppo rtive care and repeat evaluation and intervention in outpatient setting. I agree with the findings, plan of care, and disposition as documented. Electronically signed, DO Anu Garcia Disclaimer: Anu Disclaimer: This electronic medical record was generated, in whole or in part, using a voice recognition dictation system. Departure Departure Impression: Primary Impression: Acute foreign body of left ear Disposition: 01 DC HOME SELF CARE/HOMELESS Condition: STABLE Referrals: UNKNOWN PCP NAME (PCP) JACE GHOSH MD Patient Instructions: Ear Foreign Body, [id number] Additional Instructions: Call Dr. Ghosh's office first thing in the morning to arrange for follow-up tomorrow. You may take Tylenol or ibuprofen as needed for pain. Return to the ER if your symptoms worsen or fever develops. Problem Qualifiers Primary Impression: Acute foreign body of left ear Encounter type: initial encounter Qualified Codes: T16.2XXA - Foreign body in left ear, initial encounter UNIQUE BLANCA APRN Jul 05, 2020 19:51 HEATHER AMADOR DO Jul 09, 2020 17:29
== END 2020-07-05 19:55 | disposition home or self-care (01) ==
LOC: ER 16:42
DX: S00.452A Superficial foreign body of left ear, initial encounter (principal); H92.02 Otalgia, left ear; I10 Essential (primary) hypertension; E11.22 Type 2 diabetes mellitus with diabetic chronic kidney disease; Z98.890 Other specified postprocedural states; Z91.040 Latex allergy status; W45.8XXA Other foreign body or object entering through skin, initial encounter; Y93.89 Activity, other specified; Y92.89 Other specified places as the place of occurrence of the external cause; Y99.8 Other external cause status
CPT/HCPCS: 99284